=== PATIENT | male | born 1960 | race American Indian/Alaskan Native ===

== ENCOUNTER 2017-03-16 11:16 | Emergency (ER) | payer MEDICARE ==
[2017-03-16 11:16] VITALS: BMI 51.7
[2017-03-16 11:37] VITALS: BP 101/69; PULSE 95; RESP 18; TEMP 98.2; O2SAT 96
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
--- NOTE | 2017-03-16 13:56 | RAD ---
PROCEDURE: Radiographs of the Lumbar Spine. HISTORY: pain COMPARISON: No prior. FINDINGS: BONES: Normal alignment. No listhesis. No fracture. DISC SPACES: Disc degeneration at L5-S1 OTHER FINDINGS: None. IMPRESSION: Disc degeneration at L5-S1
== END 2017-03-16 13:57 | disposition home or self-care (01) ==
LOC: ED 11:16
DX: S39.012A Strain of muscle, fascia and tendon of lower back, initial encounter (principal); V89.2XXA Person injured in unspecified motor-vehicle accident, traffic, initial encounter; M54.5 Low back pain; G89.29 Other chronic pain
CPT/HCPCS: 72110; 96372; 99281; J1885

== ENCOUNTER 2017-10-08 19:04 | Inpatient (IN) | payer MEDICARE, OTHER ==
[2017-10-08 19:12] VITALS: BMI 40.7
[2017-10-08] MEDS ORDERED: Sodium Chloride 0.9% 1,000 ML IV STA (19:14)
--- NOTE | 2017-10-08 19:53 | ED PDOC ---
Arrival/HPI - General Chief Complaint: Syncope Time Seen by Provider: 10/08/17 19:13 Historian: Patient - History of Present Illness Narrative History of Present Illness (Text): 10/08/17 19:48 56 year old male, whose history includes TBI. presents to the Emergency department status post syncope just prior to arrival. Patient complains of mild trauma and pain to the back of the head. This is the second episode of syncope the patient has experienced this month; the first time, he did not seek medical evaluation. Patient denies any fever, chills, chest pain, palpitations, shortness of breath, nausea, vomiting, diarrhea, incontinence, back pain, neck pain, or any other complaints. Patient was scheduled to see his cost coordinator, Dr. Manrique, today but did not go. As per partner, patient has been more forgetful recently and occasionally dizzy. He is following with a neurologist for these issues. Patient is also reportedly eating less but drinking more water. Time/Duration: Prior to Arrival Symptom Onset: Sudden Symptom Course: Improving Context: Home Past Medical History - Provider Review Nursing Documentation Reviewed: Yes - Infectious Disease Hx of Infectious Diseases: None - Cardiac Other/Comment: Cardiomyopathy - Pulmonary Hx Respiratory Disorders: No - Neurological Hx Neurological Disorder: No - HEENT Hx HEENT Disorder: No - Renal Hx Renal Disorder: No - Endocrine/Metabolic Hx Endocrine Disorders: No - Hematological/Oncological Hx Blood Disorders: No - Integumentary Hx Dermatological Disorder: No - Musculoskeletal/Rheumatological Hx Musculoskeletal Disorders: Yes - Gastrointestinal Hx Gastrointestinal Disorders: Yes Other/Comment: Gastric bypass - Genitourinary/Gynecological Hx Genitourinary Disorders: No - Psychiatric Hx Psychophysiologic Disorder: No Hx Substance Use: No - Surgical History Hx Gastric Bypass Surgery: Yes - Anesthesia Hx Anesthesia: Yes Hx Anesthesia Reactions: No Hx Malignant Hyperthermia: No - Suicidal Assessment Feels Threatened In Home Enviroment: No Family/Social History - Physician Review Nursing Documentation Reviewed: Yes Family/Social History: Unknown Family HX Smoking Status: Never Smoked Hx Alcohol Use: Yes (weekly) Hx Substance Use: No Allergies/Home Meds Allergies/Adverse Reactions: Allergies kiwi Allergy (Uncoded 03/16/17 11:48) VOMITING nuts Allergy (Uncoded 03/16/17 11:48) ANAPHYLAXIS tangerine Allergy (Uncoded 03/16/17 11:48) VOMITING Home Medications: Home Meds Medication Instructions Recorded Confirmed Unobtainable 10/09/17 10/09/17 Review of Systems - Physician Review All systems were reviewed & negative as marked: Yes - Review of Systems Constitutional: absent: Fevers, Night Sweats Respiratory: absent: SOB Cardiovascular: absent: Chest Pain, Palpitations Gastrointestinal: absent: Diarrhea, Nausea, Vomiting Genitourinary Male: absent: Dysuria Musculoskeletal: absent: Back Pain, Neck Pain Neurological: Headache, Dizziness Physical Exam Vital Signs Reviewed: Yes Vital Signs Temp Pulse Resp BP Pulse Ox 10/08/17 19:13 98.0 F 80 18 105/53 L 96 Temperature: Afebrile Blood Pressure: Hypotensive Pulse: Regular Respiratory Rate: Normal Appearance: Positive for: Well-Appearing, Non-Toxic, Comfortable, Other (obese) Pain Distress: None Mental Status: Positive for: Alert and Oriented X 3 - Systems Exam Head: Present: Atraumatic (no hematoma), Tenderness (mild tenderness to right occiput) Pupils: Present: PERRL Extroacular Muscles: Present: EOMI Conjunctiva: Present: Normal Mouth: Present: Moist Mucous Membranes Neck: Present: Normal Range of Motion Respiratory/Chest: Present: Clear to Auscultation, Good Air Exchange. No: Respiratory Distress, Accessory Muscle Use Cardiovascular: Present: Regular Rate and Rhythm, Normal S1, S2. No: Murmurs Abdomen: No: Tenderness, Distention, Peritoneal Signs Back: Present: Normal Inspection Upper Extremity: Present: Normal Inspection. No: Cyanosis, Edema Lower Extremity: Present: Normal Inspection. No: Edema Neurological: Present: GCS=15, CN II-XII Intact, Speech Normal Skin: Present: Warm, Dry, Normal Color. No: Rashes Psychiatric: Present: Other (Seems dazed and forgetful. Not losing consciousness.) Medical Decision Making ED Course and Treatment: 10/08/17 19:58 Impression: 56 year old male presents to the Emergency department status post syncope just prior to arrival. Differential Diagnosis included but are not limited to: neurocardiogenic syncope vs. absence seizures vs. polypharmacy vs. dehydration Plan: -- CT scan of the head, rule out traumatic subdural -- Chest xray -- EKG-wnl -- Urinalysis -- S-Pabni-vrst out PE -- Labs -- Sodium Chloride IV fluids check orthostatics -- Reassess and disposition Prior Visits: Notes and results from previous visits were reviewed. Patient was last seen in the emergency department on 62, Lumbar spine strain and Chronic low back pain, and was discharged. Progress Notes: 10/08/17 20:10 reviewed old recoreds, recent negative MRI. - Lab Interpretations Lab Results: 10/08/17 20:02 10/08/17 20:02 Lab Results 10/08/17 23:14: Urine Opiates Screen Positive H, Urine Methadone Screen Negative , Ur Barbiturates Screen Negative, Ur Phencyclidine Scrn Negative, Ur Amphetamines Screen Negative, U Benzodiazepines Scrn Negative, U Oth Cocaine Metabols Negative, U Cannabinoids Screen Negative 10/08/17 23:14: Urine Color Yellow, Urine Appearance Clear, Urine pH 6.0, Ur Specific [place] 1.010, Urine Protein Trace H, Urine Glucose (UA) Negative, Urine Ketones Negative, Urine Blood Negative, Urine Nitrate Negative, Urine Bilirubin Negative, Urine Urobilinogen 0.2, Ur Leukocyte Esterase Negative, Urine RBC 0 - 2, Urine WBC 0 - 2, Ur Epithelial Cells 0 - 2, Hyaline Casts 0 - 2 10/08/17 20:02: Alcohol, Quantitative 259 H 10/08/17 20:02: Digoxin 0.9 10/08/17 20:02: PT 11.3, INR 0.99, APTT 31.2, D-Dimer, Quantitative < 200 10/08/17 20:02: WBC 7.4, RBC 3.87, Hgb 12.7 L, Hct 37.2 L, MCV 96.1, MCH 32.8, MCHC 34.1, RDW 14.7 H, Plt Count 218, MPV 9.3, Gran % 57.3, Lymph % (Auto) 34.2 , [place] % (Auto) 8.1 H, Eos % (Auto) 0.1 L, Baso % (Auto) 0.3, Gran # 4.24, Lymph # (Auto) 2.5, [place] # (Auto) 0.6, Eos # (Auto) 0.0, Baso # (Auto) 0.02 10/08/17 20:02: Sodium 143, Potassium 3.8, Chloride 101, Carbon Dioxide 24, Anion Gap 22 H, BUN 17, Creatinine 1.7 H, Est GFR ( Amer) 51, Est GFR ( Non-Af Amer) 42, Random Glucose 94, Calcium 8.2 L, Total Bilirubin 0.4, AST 134 H D, ALT 81 H, Alkaline Phosphatase 86, Troponin I < 0.01, Total Protein 6.5, Albumin 3.7, Globulin 2.8, Albumin/Globulin Ratio 1.3 - RAD Interpretation Narrative RAD Interpretations (Text): CT Head FINDINGS: Brain: Mild atrophy. No intracranial hemorrhage. No mass. No edema. Ventricles: No hydrocephalus. Bones/joints: No acute fracture. Sinuses: Postsurgical changes. Scattered minimal mucosal thickening of ethmoid sinuses. Mastoid air cells: No mastoid effusion. Orbits: Unremarkable as visualized. Soft tissues: Unremarkable. Vasculature: Minimal atherosclerotic disease of intracranial arteries. IMPRESSION: No intracranial hemorrhage. Radiology Orders: 10/08/17 19:14 CHEST TWO VIEWS (PA/LAT) [RAD] Stat 10/08/17 19:37 HEAD W/O CONTRAST [CT] Stat - EKG Interpretation EKG Interpretation (Text): 10/08/17 19:40 EKG: Ordered, reviewed, and independently interpreted the EKG. Rate : 83 BPM Rhythm : NSR Interpretation : No signs of Digoxin toxicity. Interpreted by ED Physician: Yes Type: 12 lead EKG - Medication Orders Current Medication Orders: Acetaminophen (Tylenol 325mg Tab) 650 mg PO Q4H PRN PRN Reason: Pain, Mild (1-3) Ondansetron HCl (Zofran Inj) 4 mg IVP Q4H PRN PRN Reason: Nausea/Vomiting Discontinued Medications Sodium Chloride (Sodium Chloride 0.9%) 1,000 mls @ 999 mls/hr IV .Q1H1M STA Stop: 10/08/17 20:14 Last Admin: 10/08/17 20:00 Dose: 999 mls/hr eMAR Start Stop Document 10/08/17 20:00 MS (Rec: 10/08/17 20:00 MS [id number]) Intravenous Solution Start Date 10/08/17 Start Time 20:00 End Date 10/08/17 End time 21:00 Total Infusion Time 60 - Scribe Statement The provider has reviewed the documentation as recorded by the Scribe Mukund Lowry All medical record entries made by the Scribe were at my direction and personally dictated by me. I have reviewed the chart and agree that the record accurately reflects my personal performance of the history, physical exam, medical decision making, and the department course for this patient. I have also personally directed, reviewed, and agree with the discharge instructions and disposition. Disposition/Present on Arrival - Present on Arrival Any Indicators Present on Arrival: No History of DVT/PE: No History of Uncontrolled Diabetes: No Urinary Catheter: No History of Decub. Ulcer: No History Surgical Site Infection Following: None - Disposition Have Diagnosis and Disposition been Completed?: Yes Diagnosis: Syncope and collapse Disposition: HOSPITALIZED Disposition Time: 21:00 Patient Plan: Observation Condition: IMPROVED
[2017-10-08 20:10] LABS: BASO # 0.02 K/mm3 (0.0-2.0); BASO % 0.3 % (0.0-3.0); EOS % 0.1 % (1.5-5.0); GRAN # 4.24 (1.4-6.5); GRAN % 57.3 % (50.0-68.0); HEMOGLOBIN 12.7 g/dL (14.0-18.0); LYMPH # 2.5 (1.2-3.4); LYMPH % 34.2 % (22.0-35.0); MEAN CELL VOLUME 96.1 fl (80.0-105.0); MEAN CORPUSCULAR HEMOGLOBIN 32.8 pg (25.0-35.0); MEAN CORPUSCULAR HGB CONC 34.1 g/dl (31.0-37.0); MEAN PLATELET VOLUME 9.3 fl (7.0-11.0); MONO # 0.6 (0.1-0.6); MONO % 8.1 % (1.0-6.0); RBC 3.87 10^6/uL (3.5-6.1); RED CELL DISTRIBUTION WIDTH 14.7 % (11.5-14.5); WHITE BLOOD COUNT 7.4 10^3/ul (4.5-11.0)
[2017-10-08 20:23] LABS: D DIMER < 200 ng/mL (0-243); INR 0.99 (0.93-1.08); PARTIAL THROMBOPLASTIN TIME 31.2 Seconds (25.1-36.5); PROTHROMBIN TIME 11.3 SECONDS (9.4-12.5)
[2017-10-08 20:29] LABS: ALB/GLOB RATIO 1.3 (1.1-1.8); ALBUMIN 3.7 g/dL (3.0-4.8); ALT/SGPT 81 U/L (7-56); AST/SGOT 134 U/L (17-59); BLOOD UREA NITROGEN 17 mg/dL (7-21); CALCIUM 8.2 mg/dL (8.4-10.5); GFR AFRICAN-AMERICAN 51; GFR NON-AFRICAN AMERICAN 42
[2017-10-08 20:31] LABS: TROPONIN I < 0.01 ng/mL
[2017-10-08 23:35] LABS: URINE BILIRUBIN NEGATIVE (NEGATIVE); URINE BLOOD NEGATIVE (NEGATIVE); URINE GLUCOSE (UA) NEGATIVE (NEGATIVE); URINE LEUKOCYTE ESTERASE NEGATIVE Leu/uL (NEGATIVE); URINE PROTEIN TRACE mg/dL (<30 mg/dL); URINE UROBILINOGEN 0.2 E.U./dL (<1 E.U./dL)
[2017-10-08 23:44] LABS: BARBITURATES, UR NEGATIVE (NEGATIVE); BENZODIAZEPINES, UR NEGATIVE (NEGATIVE); OPIATES, UR POSITIVE (NEGATIVE); PHENCYCLIDINE, UR NEGATIVE (NEGATIVE)
[2017-10-08 23:47] LABS: URINE APPEARANCE CLEAR (CLEAR); URINE COLOR YELLOW (YELLOW)
[2017-10-08 23:50] LABS: URINE EPITHELIAL CELLS 0 - 2 /hpf (0-5); URINE HYALINE CAST 0 - 2 /hpf; URINE RBC 0 - 2 /hpf (0-2); URINE WBC 0 - 2 /hpf (0-6)
[2017-10-09] MEDS ORDERED: Multivitamin (MVI) 10 ML in Dextrose 5% In Water 1,000 ML IV ONE (03:11)
[2017-10-09] MEDS ORDERED: Sodium Chloride 0.9% 1,000 ML IV STA (03:12)
--- NOTE | 2017-10-09 08:25 | RAD ---
HISTORY: syncope COMPARISON: No prior. TECHNIQUE: Chest PA and lateral FINDINGS: LUNGS: No active pulmonary disease. PLEURA: No significant pleural effusion identified. No pneumothorax apparent. CARDIOVASCULAR: Normal. OSSEOUS STRUCTURES: No significant abnormalities. VISUALIZED UPPER ABDOMEN: Normal. OTHER FINDINGS: None. IMPRESSION: No active disease.
[2017-10-09 09:09] LABS: ALB/GLOB RATIO 1.2 (1.1-1.8); ALBUMIN 3.5 g/dL (3.0-4.8); ALT/SGPT 75 U/L (7-56); AST/SGOT 92 U/L (17-59); BLOOD UREA NITROGEN 18 mg/dL (7-21); CALCIUM 8.3 mg/dL (8.4-10.5); GFR AFRICAN-AMERICAN > 60; GFR NON-AFRICAN AMERICAN > 60
--- NOTE | 2017-10-09 09:09 | CT ---
PROCEDURE: CT HEAD WITHOUT CONTRAST. HISTORY: fall COMPARISON: None available. TECHNIQUE: Axial computed tomography images were obtained through the head/brain without intravenous contrast. Radiation dose: Total exam DLP = 852 mGy-cm. This CT exam was performed using one or more of the following dose reduction techniques: Automated exposure control, adjustment of the mA and/or kV according to patient size, and/or use of iterative reconstruction technique. FINDINGS: HEMORRHAGE: No intracranial hemorrhage. BRAIN: No mass effect or edema. No atrophy or chronic microvascular ischemic changes. VENTRICLES: Unremarkable. No hydrocephalus. CALVARIUM: Unremarkable. PARANASAL SINUSES: Unremarkable as visualized. No significant inflammatory changes. MASTOID AIR CELLS: Unremarkable as visualized. No inflammatory changes. OTHER FINDINGS: The report concurs with the preliminary [facility] report IMPRESSION: Normal CT of the Head.
--- NOTE | 2017-10-09 09:21 | CARD ---
APPROVED REPORT EKG Measurement Heart [id number] IL [id number] <Conclusion> Normal sinus rhythm Normal ECG
--- NOTE | 2017-10-09 09:25 | HP ---
HISTORY OF PRESENT ILLNESS: I was called to see Elkin who came in with a syncopal episode, the second episode of the month. I saw him in the office for this, he has had a bunch of tests. He has a alcohol level very high. He always kind of denied his drinking and that was not a problem. Even today when I asked if that was the cause of the syncope, he denied it. He is on a banana bag right now. I have tried to get him to the rebar fabricator, he did not go; also to the neurologist that he went. Also, more forgetful and more dizzy. PAST MEDICAL HISTORY: Traumatic brain injury, syncope, apparent alcohol abuse for very long time, chronic pain, cardiomyopathy, back pain, a gastric bypass surgery in the past. There is hypertension in the family, never smoked. He drinks daily. ALLERGIES: HE IS ALLERGIC TO KIWI, NUTS AND TANGERINE. MEDICATIONS: He does remember his medications, but he tells me he is in a lot of pain medications by Pain Management doctor, but he does not know what they are at this time. REVIEW OF SYSTEMS: No fever or night sweats. No shortness of breath or cough. No chest pain or palpitations. No diarrhea, nausea, vomiting or constipation. No problems urinating. No back pain and neck pain. Does have a headache, we gave him Tylenol. He is a little bit dizzy and he did pass out, he tells us. PHYSICAL EXAMINATION: VITAL SIGNS: He has a 98 temperature, 80 pulse, 18 respiratory rate, 105/53 blood pressure, 96% O2 sat on room air. GENERAL: He is well appearing right now, nontoxic, comfortable and is morbidly obese, alert and oriented x3. HEENT: His head is traumatic with no hematoma, mild tenderness to the occiput when he fell and normocephalic. Extraocular muscles are intact. Pupils equal and reactive to light. Throat is moist. NECK: Supple. HEART: Regular rate. Normal S1, S2. LUNGS: Decreased breath sounds, but clear to auscultation. ABDOMEN: Morbidly obese, nontender. Positive bowel sounds. No guarding, no rebound, no CVA tenderness. EXTREMITIES: Have no edema. NEUROLOGIC: GCS is 15. Cranial nerves II-XII grossly intact at this time. Speech is normal. Looking for his pain medications, denying that alcohol has anything to do with the syncopal episode. He is alert, he is comfortable and forceful with this discussion a little bit, denying his alcohol. SKIN: Warm and dry that I could tell. No apparent rashes or ulcers at this time. DATA: He had multiple tests. He has a 7.4 white count, 12.7 hemoglobin, 37.2 hematocrit with 218 platelets. The D-dimer is less than 200. INR is 0.99. Sodium 143, potassium 3.8, BUN 17, creatinine 1.7, GFR is 42, sugar is 94, calcium is 8.2, total bili is 0.4, AST is 134, ALT is 81, alkaline phosphatase 86. Troponin I is less than 0.01, total protein 6.5. Urine is clear. Toxicology showed 259 alcohol level and positive opiates which he is asking for. Waiting for Neurology to come in to get their opinion. He came in last night. Waiting for labs to come in from this morning. Waiting for Neurology to come in give his opinion of the syncope. Discussed no more alcohol and be very careful with these pain medicines with Pain Management doctor. I am hoping if everything is okay, to discharge him this afternoon after Neurology sees him. This patient comes in syncope and elevated alcohol level. Zhen Mendoza DO [facility]
[2017-10-09] MEDS: Magnesium Oxide 400 mg Tab UD PO SCH ×2 (09:42→17:25)
--- NOTE | 2017-10-09 16:18 | CP.PCM.PCO ---
Physician Communication Note - Physician Communication Note Physician Communication Note: eeg is normal. Likely syncoep to etoh intoxication and vasvovagl component.
[2017-10-09] MEDS: oxyCODONE 10 mg Immediate Release Tab PO PRN (22:25)
--- NOTE | 2017-10-09 23:18 | CON ---
DATE: 10/09/2017 HISTORY OF PRESENT ILLNESS: This is a 56-year-old male with a past medical history of alcohol abuse, cardiomyopathy, chronic pain, status post gastric bypass surgery, hypertension in the family came to the hospital with a high level of alcohol and the patient has been getting oxycodone from pain management and alcohol level was high and called to evaluate the patient for a syncopal episode and the patient fell and CAT scan of the head was done which was reported negative. PAST MEDICAL HISTORY: Syncope, traumatic brain injury, alcohol abuse, cardiomyopathy, gastric bypass surgery. ALLERGIES: KIWI, NUTS AND TANGERINE. MEDICATIONS: The patient is on a lot of pain medications like oxycodone. REVIEW OF SYSTEMS: A 10-point review of systems was negative except intermittent confusion. PHYSICAL EXAMINATION HEENT: Normocephalic and atraumatic. NECK: Supple. NEUROLOGIC: Awake and oriented to self. Cranial nerves II through XII were tested. Pupils are reactive. EOM intact. Visual field full. No facial asymmetry. Tongue midline. Motor examination, moves all the extremities equally. Tone normal. Deep tendon reflexes 1+. Both plantars are downgoing. Sensory appears intact. Cerebellar, gait deferred. IMPRESSION AND PLAN: Intermittent confusional state, high alcohol intoxication and the level of alcohol was 259 and the patient is on banana bag and CAT scan of the head was done which was reported negative. Continue present management. We will follow up. Jovan Craig MD
--- NOTE | 2017-10-10 06:40 | CP.PCM.PN ---
Subjective - Date & Time of Evaluation Date of Evaluation: 10/10/17 Time of Evaluation: :18 - Subjective Subjective: S:Nurse calls with BP 170/89. States that he takes medication for blood pressure. 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 Burton Gerard? at [facility]. Denies headache , heaviness in head, chest pain, sob, nausea. Medical record was reviewed. There is a family history of HTN. O: Last Vital Signs 3 Temp 98.7 F 10/09/17 18:00 Pulse 75 10/10/17 03:06 Resp 20 10/09/17 18:00 BP 140/75 10/09/17 18:00 Pulse Ox 99 10/09/17 18:00 Awake, alert, not in distress. Obese person. LUNGS:Normal breathing pattern. A:Elevated blood pressure reading. Pulmonary HTN. P:Clonidine 0.2 mg PO x1, recheck BP in one hour. Objective - Vital Signs/Intake and Output Vital Signs (last 24 hours): Temp Pulse Resp BP Pulse Ox 98.7 F 75 20 140/75 99 10/09/17 18:00 10/10/17 03:06 10/09/17 18:00 10/09/17 18:00 10/09/17 18:00 Intake and Output: 10/09/17 10/10/17 18:59 06:59 Intake Total 660 Balance 660 - Medications Medications: Current Medications Acetaminophen (Tylenol 325mg Tab) 650 mg PO Q4H PRN PRN Reason: Pain, Mild (1-3) Last Admin: 10/10/17 05:09 Dose: 650 mg Lorazepam (Ativan) 0.5 mg PO Q6H PRN; Protocol PRN Reason: Symptoms of alcohol withdrawl Last Admin: 10/09/17 16:40 Dose: 0.5 mg Magnesium Oxide (Mag-Ox) 400 mg PO BID BENNETT Last Admin: 10/09/17 17:25 Dose: 400 mg Ondansetron HCl (Zofran Inj) 4 mg IVP Q4H PRN PRN Reason: Nausea/Vomiting Oxycodone HCl (Oxycodone Immediate Release Tab) 10 mg PO BID PRN PRN Reason: Pain, moderate (4-7) Last Admin: 10/09/17 22:25 Dose: 10 mg - Labs Labs: PT 11.3 SECONDS (9.4-12.5) 10/08/17 20:02 INR 0.99 (0.93-1.08) 10/08/17 20:02 APTT 31.2 Seconds (25.1-36.5) 10/08/17 20:02
[2017-10-10 08:22] LABS: HEMOGLOBIN 12.3 g/dL (14.0-18.0); MEAN CELL VOLUME 97.4 fl (80.0-105.0); MEAN CORPUSCULAR HGB CONC 32.9 g/dl (31.0-37.0); MEAN PLATELET VOLUME 9.8 fl (7.0-11.0); RBC 3.84 10^6/uL (3.5-6.1); RED CELL DISTRIBUTION WIDTH 14.8 % (11.5-14.5); WHITE BLOOD COUNT 5.2 10^3/ul (4.5-11.0)
[2017-10-10] MEDS: Magnesium Oxide 400 mg Tab UD PO SCH ×2 (09:28→17:52)
[2017-10-10] MEDS: oxyCODONE 10 mg Immediate Release Tab PO PRN ×3 (09:28→22:21)
[2017-10-10] MEDS ORDERED: Sodium Chloride 0.45% 1,000 ML IV SCH (10:45)
[2017-10-11 07:51] LABS: HEMOGLOBIN 11.2 g/dL (14.0-18.0); MEAN CELL VOLUME 97.4 fl (80.0-105.0); MEAN CORPUSCULAR HEMOGLOBIN 32.7 pg (25.0-35.0); MEAN CORPUSCULAR HGB CONC 33.5 g/dl (31.0-37.0); MEAN PLATELET VOLUME 9.7 fl (7.0-11.0); RBC 3.43 10^6/uL (3.5-6.1); RED CELL DISTRIBUTION WIDTH 14.8 % (11.5-14.5); WHITE BLOOD COUNT 7.7 10^3/ul (4.5-11.0)
[2017-10-11 08:17] LABS: ALB/GLOB RATIO 1.1 (1.1-1.8); ALBUMIN 2.9 g/dL (3.0-4.8); ALT/SGPT 43 U/L (7-56); AST/SGOT 33 U/L (17-59); BLOOD UREA NITROGEN 11 mg/dL (7-21); CALCIUM 8.5 mg/dL (8.4-10.5); GFR AFRICAN-AMERICAN > 60; GFR NON-AFRICAN AMERICAN > 60
[2017-10-11] MEDS ORDERED: Digoxin 250 mcg (0.25 mg) Tab PO SCH (10:00)
[2017-10-11] MEDS ORDERED: Non Formulary Medication (Celecoxib [Celebrex] 200 MG) PO SCH (10:00)
[2017-10-11] MEDS: Non Formulary Medication (Celecoxib [Celebrex] 200 MG) PO SCH (10:02)
[2017-10-11] MEDS: EDARBI 80 MG PO SCH (10:03)
[2017-10-11] MEDS: Magnesium Oxide 400 mg Tab UD PO SCH ×2 (10:03→18:03)
[2017-10-11] MEDS: oxyCODONE 10 mg Immediate Release Tab PO PRN ×2 (10:03→18:07)
[2017-10-11] MEDS: Levothyroxine 100 MCG TAB PO SCH (10:04)
[2017-10-11] MEDS: Digoxin 250 mcg (0.25 mg) Tab PO SCH (14:24)
[2017-10-11 16:24] VITALS: O2SAT 98
--- NOTE | 2017-10-12 05:55 | CP.PCM.PN ---
Subjective - Date & Time of Evaluation Date of Evaluation: 10/12/17 Time of Evaluation: 05:54 - Subjective Subjective: S:Seen at bedside for BP 202/115 (left), 210/118 (right). Complains of back pain. Has no other complaints. Denies headache, dizziness, heaviness in head, chest pain, sob. Medical record was reviewed. Received Oxycodone 20 mg PO at 10 PM. Next dose is not due until 10 AM. O: Last Vital Signs 3 Temp 98 F 10/11/17 16:23 Pulse 75 10/11/17 22:00 Resp 18 10/11/17 16:23 BP 181/95 H 10/11/17 18:03 Pulse Ox 98 10/11/17 16:23 Alert, awake, not in distress. LUNGS: Normal breathing pattern. A:Elevated blood pressure reading. Back pain. P:Clonidine 0.2 mg PO x 1. Oxycodone 20 mg PO x 1. Objective - Vital Signs/Intake and Output Vital Signs (last 24 hours): Temp Pulse Resp BP Pulse Ox 98 F 75 18 181/95 H 98 10/11/17 16:23 10/11/17 22:00 10/11/17 16:23 10/11/17 18:03 10/11/17 16:23 Intake and Output: 10/11/17 10/12/17 18:59 06:59 Intake Total 660 1080 Balance 660 1080 - Medications Medications: Current Medications Acetaminophen (Tylenol 325mg Tab) 650 mg PO Q4H PRN PRN Reason: Pain, Mild (1-3) Last Admin: 10/12/17 05:13 Dose: 650 mg Aspirin (Ecotrin) 81 mg PO DAILY [facility] Last Admin: 10/11/17 10:02 Dose: 81 mg Carvedilol (Coreg) 25 mg PO BID [facility] Last Admin: 10/11/17 18:03 Dose: 25 mg Digoxin (Lanoxin) 0.25 mg PO 1400 [facility] Last Admin: 10/11/17 14:24 Dose: 0.25 mg Home Med (Home Med) 1 unit PO DAILY [facility] Last Admin: 10/11/17 10:03 Dose: 1 unit Sodium Chloride (Sodium Chloride 0.45%) 1,000 mls @ 40 mls/hr IV .Q24H [facility] Levothyroxine Sodium (Synthroid) 100 mcg PO DAILY [facility] Last Admin: 10/11/17 10:04 Dose: 100 mcg Lorazepam (Ativan) 0.5 mg PO Q6H PRN; Protocol PRN Reason: Symptoms of alcohol withdrawl Last Admin: 10/09/17 16:40 Dose: 0.5 mg Magnesium Oxide (Mag-Ox) 400 mg PO BID [facility] Last Admin: 10/11/17 18:03 Dose: 400 mg Non-Formulary Medication (Celecoxib [Celebrex]) 200 mg PO DAILY [facility] Last Admin: 10/11/17 10:02 Dose: Not Given Ondansetron HCl (Zofran Inj) 4 mg IVP Q4H PRN PRN Reason: Nausea/Vomiting Oxycodone HCl (Oxycodone Immediate Release Tab) 20 mg PO BID PRN PRN Reason: Pain, severe (8-10) Last Admin: 10/11/17 18:07 Dose: 20 mg Tamsulosin HCl (Flomax) 0.4 mg PO BID [facility] Last Admin: 10/11/17 18:03 Dose: 0.4 mg Zolpidem Tartrate (Ambien) 10 mg PO HS PRN; Protocol PRN Reason: Insomnia Last Admin: 10/11/17 22:49 Dose: 10 mg - Labs Labs: 10/11/17 07:35 10/11/17 07:35 PT 11.3 SECONDS (9.4-12.5) 10/08/17 20:02 INR 0.99 (0.93-1.08) 10/08/17 20:02 APTT 31.2 Seconds (25.1-36.5) 10/08/17 20:02
[2017-10-12] MEDS: oxyCODONE 10 mg Immediate Release Tab PO PRN ×2 (06:00→13:23)
[2017-10-12 07:18] LABS: HEMOGLOBIN 11.5 g/dL (14.0-18.0); MEAN CELL VOLUME 98.3 fl (80.0-105.0); MEAN CORPUSCULAR HEMOGLOBIN 32.6 pg (25.0-35.0); MEAN CORPUSCULAR HGB CONC 33.1 g/dl (31.0-37.0); MEAN PLATELET VOLUME 9.6 fl (7.0-11.0); RBC 3.53 10^6/uL (3.5-6.1); RED CELL DISTRIBUTION WIDTH 14.7 % (11.5-14.5); WHITE BLOOD COUNT 7.3 10^3/ul (4.5-11.0)
[2017-10-12 07:54] LABS: ALB/GLOB RATIO 1.2 (1.1-1.8); ALBUMIN 3.1 g/dL (3.0-4.8); ALT/SGPT 36 U/L (7-56); AST/SGOT 24 U/L (17-59); BLOOD UREA NITROGEN 14 mg/dL (7-21); CALCIUM 8.6 mg/dL (8.4-10.5); GFR AFRICAN-AMERICAN > 60; GFR NON-AFRICAN AMERICAN > 60
[2017-10-12 08:07] VITALS: BP 160/70; PULSE 79; RESP 19; TEMP 97.7
--- NOTE | 2017-10-12 08:59 | PN ---
DATE: 10/10/2017 SUBJECTIVE: I saw him in bed this morning. He is not feeling that well. He is not walking that well. He feels weak. He has some IV fluids. He is on Ativan, Catapres, magnesium oxide. He is off the banana bag. I put him on regular fluids. He has got his pain medications and Zofran for nausea, but he still feels little bit off. PHYSICAL EXAMINATION VITAL SIGNS: He has 98 temperature, 85 pulse, 170/89 blood pressure, 20 respiratory rate, 98% O2 sat on room air. HEENT: Head: Atraumatic, normocephalic. HEART: Regular rate. LUNGS: Decreased breath sounds bilaterally, but clear. ABDOMEN: Soft, morbidly obese, nontender. EXTREMITIES: No edema. He had 2 syncopal episodes in about 2 or 3 weeks. He denies drinking alcohol, although he has a 257 alcohol level and he is in denial, but he has not closed the idea of going to rehab. LABORATORY DATA: He has 5.2 white count, 12.3 hemoglobin, hematocrit 37.4, with 198 platelets. He has sodium 139, potassium 4.2, BUN 80, creatinine 1.2, GFR is greater than 60, sugar is 180, calcium is 8.3, total bili is 1.3. AST is 92, ALT is 75, alkaline phosphatase 83, total protein is 6.4. Urine is clean. Toxicology is 259 alcohol level, positive for opiates. He is being seen by Neurology. There are orders for Neurology and pain management. need him physical therapy to see what they recommend and that was done yesterday afternoon. They recommend TCU. So, I am hoping for TCU for him probably on Thursday. We will check his labs tomorrow. Get him out of bed to chair, physical therapy, IV fluids as he gets detox from the alcohol. The plan is going to be for TCU on Thursday. He is here for alcohol withdrawal and syncopal episode. Zhen Mendoza DO MTDArie
--- NOTE | 2017-10-12 09:20 | PN ---
DATE: 10/11/2017 SUBJECTIVE: He is trying to feel little bit better. He does not have a syncopal feeling. He wants go back to his medications. He is being on Ambien at night, Ativan, Celebrex, Coreg, Ecotrin, Flomax, Lanoxin, magnesium oxide, oxycodone, IV fluids, Synthroid, Tylenol and Zofran. I need to get him to walk little bit more, he needs TCU, his recommendations from Physical Therapy, so tomorrow he will be go to TCU tomorrow. PHYSICAL EXAMINATION: VITAL SIGNS: Temp 98, 78 pulse, 171/84 blood pressure, 20 respiratory rate, 100% O2 sat on room air. GENERAL: He is more alert and calmer, still little jittery, but no so terrible.. HEENT: Head is atraumatic and normocephalic. HEART: Regular rate. LUNGS: Decreased breath sounds, but clear. ABDOMEN: Soft, obese, nontender. EXTREMITIES: No edema. LABORATORY DATA: White count 7.7, 11.2 hemoglobin, 33.4 hematocrit with 177 platelets. Sodium 139, potassium 4.2, BUN 18, creatinine 1.2, GFR is greater than 60, sugar is 118, calcium is 8.3, total bili is 1.3, AST is 92, ALT is 75, alk phos 83, total protein 6.4. ASSESSMENT AND PLAN: He did have a very elevated alcohol level of 259 and positive for opiates when he came in. I believe that is the reason why he had a syncopal episode. He is little bit in denial. We did discuss going to rehab for alcohol. He is up for it, but trying him to TCU tomorrow to get physical therapy before he goes home. He had syncopal episode and elevated alcohol. Zhen Mendoza DO MTDD
[2017-10-12] MEDS: EDARBI 80 MG PO SCH (09:34)
[2017-10-12] MEDS: Magnesium Oxide 400 mg Tab UD PO SCH (09:36)
[2017-10-12] MEDS: Levothyroxine 100 MCG TAB PO SCH (09:38)
--- NOTE | 2017-10-12 10:52 | EEG ---
DATE: 10/09/2017 ELECTROENCEPHALOGRAM CONDITION OF THE RECORDING: Drowsy. DIAGNOSIS: Syncope. MEDICATIONS: Reviewed by nurse per reconciliation sheet. INTERPRETATION: This is a 16-channel international recording. The background activity of this tracing was composed of 8 cycles per second. There was small amount of beta activity of 16 to 20 cycles per second seen in this recording. There was small amount of theta activity of 5 to 7 cycles per second seen in this tracing. Drowsiness was characterized by the mixed beta and theta activities. The sleep was characterized by vertex transient waves, sleep spindles and bilateral slowing. Photic stimulation showed no changes in the tracing. No paroxysmal activities noted in the recording. CONCLUSION: This is a normal drowsy EEG. No evidence of any epileptiform activity. Please clinically correlate. Jimy Craig MD
[2017-10-12] MEDS: Non Formulary Medication (Celecoxib [Celebrex] 200 MG) PO SCH (13:16)
[2017-10-12] MEDS: Digoxin 250 mcg (0.25 mg) Tab PO SCH (13:22)
[2017-10-12 13:24] VITALS: PULSE 80
--- NOTE | 2017-10-13 07:45 | DS ---
HISTORY OF PRESENT ILLNESS: He was in the hospital for being syncopal, unresponsive for a moment, alcohol level very high greater than 250, and some alcohol withdrawal. Physical therapy recommended TCU for patient safety. He is on IV fluids, Ambien, Ativan, Catapres, Celebrex, Coreg, Ecotrin, Flomax, Lanoxin, magnesium, pain meds, Synthroid, Tylenol, and Zofran. PHYSICAL EXAMINATION: VITAL SIGNS: Temperature 97.7; pulse 79; 160/70 blood pressure - better; 19 respiratory rate, 98% O2 sat on room air. HEENT: Head is atraumatic, normocephalic. HEART: Regular rate. LUNGS: Decreased breath sounds, but clear. ABDOMEN: Soft, morbidly obese, nontender. EXTREMITIES: No edema. NEUROLOGIC: He is weak. He needs help to walk. He needs some physical therapy. LABORATORY DATA: He has 7.3 white count, 11.5 hemoglobin, 34.7 hematocrit, 180 platelets. He has 140 sodium, potassium 4.6, BUN 14, creatinine 0.9, GFR is greater than 60, sugar is 106. Total bilirubin is 0.5, AST is 24, ALT is 36, alkaline phosphatase , total protein is 5.7. The plan is for him to go to physical therapy before he goes home. His alcohol level when he came in was 259. He is being seen by Neurology. He is asking for pain medications and pain treatment. I will consult Dr. Giron, his pain management doctor. He is going to be moved over to TCU later today. We will continue with aggressive treatment and care, watching his blood pressures, which are good this morning and encourage him to participate in therapy and no more alcohol. Zhen Mendoza DO MTDD
== END 2017-10-12 14:16 | DRG 897 ==
LOC: ED 19:04 → ERH 23:17 → 3RNO 10-09 00:59 → OBSVTOIN 10-09 15:45
PROVIDERS: ADMIT Family Medicine; ATTEND Family Medicine
DX: F10.239 Alcohol dependence with withdrawal, unspecified (principal); I42.9 Cardiomyopathy, unspecified; Y90.8 Blood alcohol level of 240 mg/100 ml or more; I27.20 Pulmonary hypertension, unspecified; R55 Syncope and collapse; M54.9 Dorsalgia, unspecified; G89.29 Other chronic pain; Z98.84 Bariatric surgery status; Z87.820 Personal history of traumatic brain injury; Z82.49 Family history of ischemic heart disease and other diseases of the circulatory system

== ENCOUNTER 2017-10-12 14:19 | Inpatient (IN) | payer OTHER ==
[2017-10-12 14:59] VITALS: BMI 44.6
[2017-10-12] MEDS: Magnesium Oxide 400 mg Tab UD PO SCH (17:17)
[2017-10-12] MEDS ORDERED: Pneumococcal 23-Valent Vaccine IM ONE (17:36)
[2017-10-12] MEDS: oxyCODONE 20 mg Immediate Release Tab PO PRN (22:36)
[2017-10-13] MEDS: Levothyroxine 100 MCG TAB PO SCH (06:27)
[2017-10-13] MEDS: EDARBI 80 MG PO SCH (09:36)
[2017-10-13] MEDS: Magnesium Oxide 400 mg Tab UD PO SCH ×2 (09:36→17:39)
--- NOTE | 2017-10-13 09:48 | HP ---
HISTORY OF PRESENT ILLNESS: I saw Elkin in the Transitional Care Unit. He was transferred over from the hospital side. He is a 56-year-old man, who came to the hospital site with a syncopal episode. Also, he is in chronic pain. He has a high alcohol level of 259 and he is on pain meds from pain management for chronic pain and he is in denial of that is the reason for syncopal episode. We are trying to also get him off the alcohol. His family is very adamant about him going to rehab. He does not want to do it at this time. PAST MEDICAL HISTORY: He has a past medical history of traumatic brain injury; syncope; apparent alcohol abuse for very long time; chronic pain, on pain meds with the pain management doctor; cardiomyopathy; back pain; gastric bypass surgery in the past. FAMILY HISTORY: There was hypertension in the family. SOCIAL HISTORY: Never smoked. Drinks daily. Lots of narcotics. ALLERGIES: HE IS ALLERGIC TO KIWI, NUTS AND TANGERINE. MEDICATIONS: He is currently on Ambien, Catapres, Coreg, Ecotrin, Flomax, Lanoxin, magnesium, oxycodone, Synthroid, Tylenol, Zofran. REVIEW OF SYSTEMS: No fever. No night sweats. No shortness of breath or cough. No chest pain or palpitations. No diarrhea, nausea, vomiting, constipation or problems urinating. No back pain or neck pain at this time. Does have a headache, but that went away. He did get dizzy that is better now. He did not pass out at this time. PHYSICAL EXAMINATION: VITAL SIGNS: He has vital signs as 97.9 temp, 79 pulse, 120/71 blood pressure, 16 respiratory rate, 99% O2 sat on room air. GENERAL: He is well appearing. Sitting up in bed, feeding himself breakfast. He is in good spirits. He is feeling better overall. No tremors. HEENT: His head is atraumatic, normocephalic. His extraocular muscles are intact. His pupils equal, reactive to light. Throat is moist. NECK: Supple. HEART: Regular rate. Normal S1 and S2. LUNGS: Decreased breath sounds, but clear to auscultation. ABDOMEN: Soft, morbidly obese, nontender. Positive bowel sounds. No guarding. No rebound. No CVA tenderness. EXTREMITIES: Have no edema. He can move all 4 extremities well. NEUROLOGIC: GCS is 15. Cranial nerves II through XII grossly intact. Speech is normal. IMPRESSION: All he wants to talk about is pain medications. He is denying alcohol has anything to do with the syncopal episode. He is here because Physical Therapy said he needed rehab in TCU before he went home for safety. We will check his labs tomorrow. We will get a consult with his pain management doctor, Dr. Giron if they want to make any changes in his medications. We will encourage him to eat well, take his medications, do the physical therapy. Zhen Mendoza DO
[2017-10-13] MEDS ORDERED: CELEBREX 200 MG PO SCH (10:00)
[2017-10-13] MEDS: oxyCODONE 20 mg Immediate Release Tab PO PRN (10:31)
[2017-10-13] MEDS: Digoxin 250 mcg (0.25 mg) Tab PO SCH (13:39)
[2017-10-13] MEDS: oxyCODONE 20 mg ER Tab (oxyCONTIN) PO SCH (21:08)
--- NOTE | 2017-10-14 05:51 | CON ---
DATE: 10/13/2017 CONSULTATION NOTE LOCATION: Room number 318, bed 1. REQUESTING PHYSICIAN: Zhen Mendoza D.O. CHIEF COMPLAINT: Chronic low back pain. HISTORY OF PRESENT ILLNESS: Mr. Pickett is a 56-year-old patient who is well known to me as he has been treated for chronic pain syndrome and chronic low back pain. Patient was admitted to the hospital with syncopal episode as he admitted that he has been falling. On admission, he had a high alcohol level of 259 and the patient admitted that he was taking alcohol as his pain medication. He ran out of his pain medication and he was using alcohol to get some relief. PAST MEDICAL HISTORY: Traumatic brain injury, syncope, alcohol abuse, chronic pain, cardiomyopathy, history of gastric bypass in the past. FAMILY HISTORY: Hypertension in the family. SOCIAL HISTORY: Patient denied any smoking. He drinks alcohol daily. Denied any IV drug abuse. ALLERGIES: HE IS ALLERGIC TO KIWI, NUTS AND TANGERINE. MEDICATIONS: Patient is currently on Ambien, Coreg, Ecotrin, Flomax, Lanoxin, magnesium, OxyContin, Synthroid, Zofran. REVIEW OF SYSTEMS: Patient denied any fever, any night sweats. He denied any cough, shortness of breath, sputum. He denied any chest pain, palpitation. He denied any nausea, vomiting, abdominal pain. He denied any bowel or bladder dysfunction. PHYSICAL EXAMINATION: GENERAL: He is well appearing, mildly obese. VITAL SIGNS: He is afebrile. Vitals signs stable. HEENT: His head is atraumatic, normocephalic. Extraocular muscles are intact. Pupils are equal, reactive. NECK: Supple. No jugular venous distention. HEART: Normal S1 and S2. LUNGS: Clear to auscultation. ABDOMEN: Soft, morbidly obese, nontender. NEUROMUSCULAR: He is alert, awake, and oriented x3. Concentrates very well. Cranial nerves II through XII grossly intact. Coordination is grossly intact. There is tenderness over spinous process of lower lumbar spine, bilateral lumbar paraspinal and lumbar facet joint line. Facet joint loading maneuver is positive. Straight leg raising test elicits lower back pain. There is intact sensation to bilateral lower extremity. IMPRESSION: Chronic low back pain secondary to degenerative disk disease and lumbar spondylosis without myelopathy. RECOMMENDATIONS: We will change his oxycodone 20 mg immediate release to OxyContin 20 mg extended release scheduled every 8 hours. Patient to follow up as an outpatient to better manage his medications and the issue of drinking alcohol. Use of this medication was discussed in detail with the patient, whose risks were explained to the patient and we will discuss further on his next visit. Patrick Giron MD
[2017-10-14] MEDS: oxyCODONE 20 mg ER Tab (oxyCONTIN) PO SCH ×3 (06:10→21:47)
[2017-10-14 07:02] LABS: HEMOGLOBIN 11.2 g/dL (14.0-18.0); MEAN CELL VOLUME 99.1 fl (80.0-105.0); MEAN CORPUSCULAR HEMOGLOBIN 32.4 pg (25.0-35.0); MEAN CORPUSCULAR HGB CONC 32.7 g/dl (31.0-37.0); RBC 3.46 10^6/uL (3.5-6.1); RED CELL DISTRIBUTION WIDTH 14.8 % (11.5-14.5); WHITE BLOOD COUNT 9.3 10^3/ul (4.5-11.0)
[2017-10-14 07:25] LABS: BLOOD UREA NITROGEN 20 mg/dL (7-21)
[2017-10-14 07:26] LABS: ALB/GLOB RATIO 1.2 (1.1-1.8); ALBUMIN 3.2 g/dL (3.0-4.8); ALT/SGPT 30 U/L (7-56); AST/SGOT 29 U/L (17-59); CALCIUM 8.8 mg/dL (8.4-10.5); GFR AFRICAN-AMERICAN > 60; GFR NON-AFRICAN AMERICAN > 60
--- NOTE | 2017-10-14 09:04 | PN ---
DATE: 10/14/2017 SUBJECTIVE: I saw Elkin in the TCU. He has slept well. He is comfortable. He is in better spirits. Dr. Giron came to see him and adjusted his pain management meds, which is very good. I have been asking him for 3-4 days since he has been in the hospital site. He is also asking for trazodone at nighttime to help him sleep. PHYSICAL EXAMINATION: VITAL SIGNS: He has a 98.6 temp, 79 pulse, 136/78 blood pressure, 18 respiratory rate, 97% O2 sat on room air. GENERAL: He is also trying on physical therapy. He is getting a little bit better. He has got ways to go. HEENT: His head is atraumatic, normocephalic. HEART: Regular rate. LUNGS: Decreased breath sounds, but clear. ABDOMEN: Soft, obese, nontender. EXTREMITIES: Trace edema. MEDICATIONS: He is on Ambien, Catapres, Coreg, Desyrel, Ecotrin, Flomax, Lanoxin, magnesium oxide, Norvasc. Now, he is on oxycodone extended release, Synthroid and Tylenol, Zofran and he got trazodone 100 mg at nighttime. LABORATORY DATA: He had a 142 sodium, potassium 4.4, BUN 20, creatinine 0.9, GFR is greater than 60, sugar is 108, calcium is 8.8, total bili is 0.5, AST is 29, ALT is 30, alk phos 61, total protein is 5.8. White count is 9.3, hemoglobin 11.2, hematocrit 34.3, platelets of 214. ASSESSMENT AND PLAN: I encouraged him to participate in physical therapy. Also, to take his medications. He is also not going to drink anymore. Discussed the alcohol issue once again. We will continue with physical therapy, his medications. He will eat. He will get out of bed everyday and hopefully improve. Elkin Pickett with syncopal episode, high alcohol level, alcoholic chronic pain, hypertension, anxiety. Zhen Mendoza DO
[2017-10-14] MEDS: CELEBREX 200 MG PO SCH (09:33)
[2017-10-14] MEDS: Magnesium Oxide 400 mg Tab UD PO SCH ×2 (09:33→17:32)
[2017-10-14] MEDS: EDARBI 80 MG PO SCH (09:35)
[2017-10-14] MEDS: Digoxin 250 mcg (0.25 mg) Tab PO SCH (13:16)
[2017-10-15] MEDS: oxyCODONE 20 mg ER Tab (oxyCONTIN) PO SCH ×4 (05:15→23:00)
[2017-10-15] MEDS: Levothyroxine 100 MCG TAB PO SCH (05:15)
[2017-10-15] MEDS: CELEBREX 200 MG PO SCH (09:42)
[2017-10-15] MEDS: Magnesium Oxide 400 mg Tab UD PO SCH ×2 (09:43→17:54)
[2017-10-15] MEDS: EDARBI 80 MG PO SCH (09:43)
--- NOTE | 2017-10-15 10:32 | PN ---
DATE: 10/15/2017 SUBJECTIVE: I saw him sitting up in bed, eating his breakfast. He is feeling well. He is walking with physical therapy. He is a little bit off, but better. He is improving. MEDICATIONS: He is on Ambien, Antivert, Catapres, Coreg, Desyrel, Ecotrin, Flomax, Lanoxin, magnesium, Norvasc, OxyContin, Synthroid, Tylenol and Zofran. PHYSICAL EXAMINATION: VITAL SIGNS: 97.8 temp, 79 pulse, 155/80 blood pressure, 18 respiratory rate, 100% O2 sat on room air. GENERAL: He is eating quite well. He is sitting up eating breakfast. HEENT: His head is atraumatic, normocephalic. HEART: Regular rate. LUNGS: Clear to auscultation. ABDOMEN: Soft, obese, nontender. EXTREMITIES: No edema. LABORATORY DATA: Last labs were on 10/14/2017 and he did well. ASSESSMENT AND PLAN: He is doing well on physical therapy. Pain Management came and adjusted his medications. I encouraged him to continue with physical therapy, exercise, eat well and we will continue with what we are doing, 5 more days in the Transitional Care Unit. Elkin Pickett who has got unstable balance. He had a syncopal episode. He had alcohol problems and I think he is slowly improving. Elikn Pickett also has chronic pain. Zhen Mendoza DO
[2017-10-15] MEDS: Digoxin 250 mcg (0.25 mg) Tab PO SCH (14:16)
--- NOTE | 2017-10-15 20:17 | CON ---
DATE: 10/15/2017 CARDIOLOGY CONSULTATION HISTORY OF PRESENT ILLNESS: The patient is a 56-year-old male who presented to the hospital with recurrent syncope. He was noted to have alcohol level above 300 with positive opiates in his urine. PAST MEDICAL HISTORY: The patient's past medical history includes a history of cardiomyopathy. According to the patient, he has been followed by a marketing mgr in [place]. He denies myocardial infarction. He was treated with digoxin and aspirin. He denies coronary artery disease. SOCIAL HISTORY: The patient denies smoking, but admits to multiple episodes of alcohol binging. REVIEW OF SYSTEMS: Reviewed in detail. No shortness of breath. No angina. Negative edema in the lower extremities. PHYSICAL EXAMINATION: VITAL SIGNS: Blood pressure in the TCU is 86/58 and there are orthostatic changes noted. NECK: Negative JVD. LUNGS: Without rales. HEART: Reveals S1, S2. EXTREMITIES: Without edema. DIAGNOSTIC DATA: EKG, no acute changes. LABORATORY DATA: BUN and creatinine are unremarkable. Troponins on admission were negative. Hemoglobin is 11.2. IMPRESSION: 1. Multiple syncopal episodes. 2. This admission, the patient had alcoholic toxicity. 3. Opiate use. 4. Questionable cardiomyopathy. 5. Anemia. 6. Obesity. PLAN: Given these findings, I have discussed with the patient about the alcohol-related syncope. The patient denies he drinks too much, but admits to a binge. We will obtain an echocardiogram to evaluate his LV function and his possible cardiomyopathy. We will discontinue his clonidine and may need to hold back on his Norvasc depending on his blood pressure response. Onel Garrett MD
--- NOTE | 2017-10-15 22:07 | CARD ---
APPROVED REPORT EKG Measurement Heart [id number] <Conclusion> Normal sinus rhythm Minimal voltage criteria for LVH, may be normal variant Cannot rule out Inferior infarct, age undetermined Abnormal ECG
[2017-10-16] MEDS: Levothyroxine 100 MCG TAB PO SCH (06:24)
[2017-10-16] MEDS: Magnesium Oxide 400 mg Tab UD PO SCH ×2 (09:28→17:44)
[2017-10-16] MEDS: EDARBI 80 MG PO SCH (09:28)
[2017-10-16] MEDS: CELEBREX 200 MG PO SCH (09:28)
[2017-10-16] MEDS: oxyCODONE 20 mg ER Tab (oxyCONTIN) PO SCH ×4 (09:29→23:00)
--- NOTE | 2017-10-16 10:28 | PN ---
DATE: 10/16/2017 CARDIOLOGY FOLLOWUP SUBJECTIVE: The patient is without complaints. PHYSICAL EXAMINATION: VITAL SIGNS: Blood pressure is 136/75, heart rates in the 90s. NECK: Negative JVD. LUNGS: Without rales. HEART: Reveals S1, S2. EXTREMITIES: Without edema. LABORATORY DATA: Includes an echocardiogram, which was performed which revealed normal LV function, no LV outflow obstruction. No aortic stenosis. IMPRESSION: 1. History of recurrent syncope. 2. No evidence for cardiomyopathy in which the patient states he had. 3. Recurrent alcohol binges. 4. Obesity. 5. Hypertension. Given these findings, I have discussed with the patient the echo findings. There is no evidence for cardiac cause of his syncope. I have discussed with him about the need to cut his alcohol intake. I will sign off on the case today. No further cardiac workup is necessary. The patient will follow up with his own author. Onel Garrett MD
--- NOTE | 2017-10-16 11:10 | PN ---
DATE: 10/16/2017 SUBJECTIVE: I saw Elkin this morning, he is very tired. I discussed this with nurse that he was up most of the night. He is on Ambien, Antivert, Coreg, Desyrel, Ecotrin, Flomax, Lanoxin, magnesium, Norvasc, oxycodone, Synthroid, Tylenol and Zofran. He was so tired, he did not have his oxycodone this morning. PHYSICAL EXAMINATION VITAL SIGNS: He has a 97.9 temp, 91 pulse, 136/75 blood pressure, 18 respiratory rate, 99% O2 sat on room air. HEENT: His head is atraumatic, normocephalic. HEART: Regular rate. LUNGS: Clear to auscultation. ABDOMEN: Morbidly obese. Nontender, soft. Positive bowel sounds. EXTREMITIES: No edema. ASSESSMENT AND PLAN: He is here to get physical therapy before he can go home, TCU. His last labs were from 10/14/2017 and he did well. He was seen by Dr. Onel Garrett, the orthotist or prosthetist. He had multiple syncopal episodes, he had alcoholic toxicity, opioid use, questionable cardiomyopathy, anemia and obesity. He is going to stop his drinking and adjusting medications depending on his blood pressure issues; right now, it is 136/75. We will continue with aggressive treatment and care, I am making sure he is doing his physical therapy. Zhen Mendoza DO MTDD
[2017-10-16] MEDS: Digoxin 250 mcg (0.25 mg) Tab PO SCH (13:55)
[2017-10-17] MEDS: Levothyroxine 100 MCG TAB PO SCH (05:11)
[2017-10-17] MEDS: oxyCODONE 20 mg ER Tab (oxyCONTIN) PO SCH ×3 (09:06→22:01)
[2017-10-17] MEDS: Magnesium Oxide 400 mg Tab UD PO SCH ×2 (09:08→17:12)
[2017-10-17] MEDS: EDARBI 80 MG PO SCH (09:08)
[2017-10-17] MEDS: CELEBREX 200 MG PO SCH (09:11)
--- NOTE | 2017-10-17 10:29 | PN ---
DATE: 10/17/2017 SUBJECTIVE: I saw Elkin resting comfortably in bed this morning. He is trying physical therapy, tells me he is improving. He is on Ambien, Antivert, Coreg, Desyrel, Ecotrin, Flomax, Lanoxin, magnesium, Norvasc, oxycodone, Synthroid, Tylenol and Zofran. He is also eating very well, they tell me. PHYSICAL EXAMINATION: VITAL SIGNS: He has a 98 temperature, 85 pulse, 122/70 blood pressure, 18 respiratory rate, 97% O2 sat on room air. HEENT: Head is atraumatic, normocephalic. HEART: Regular rate. LUNGS: Decreased breath sounds, but clear. ABDOMEN: Morbidly obese. Soft, nontender. Positive bowel sounds. EXTREMITIES: Trace edema if any. LABORATORY DATA: Last labs on the 10/14/2017, he did well. ASSESSMENT AND PLAN: He is being seen by Cardiology. There is no evidence of cardiac disease cause of syncope and it is felt to be alcohol and pain medication induced. He had syncope, high alcohol level. He is alcoholic. He has chronic pain. He is obese and has hypertension, hopefully not drinking over the past week and that will continue to help him. Continue aggressive treatment and care and physical therapy and I discussed getting off his pain medications. Zhen Mendoza DO [facility]
[2017-10-17] MEDS: Digoxin 250 mcg (0.25 mg) Tab PO SCH (13:32)
[2017-10-18] MEDS: Levothyroxine 100 MCG TAB PO SCH (06:41)
[2017-10-18] MEDS: CELEBREX 200 MG PO SCH (09:06)
[2017-10-18] MEDS: EDARBI 80 MG PO SCH (09:07)
[2017-10-18] MEDS: Magnesium Oxide 400 mg Tab UD PO SCH ×2 (09:08→17:52)
[2017-10-18] MEDS: oxyCODONE 20 mg ER Tab (oxyCONTIN) PO SCH ×2 (09:13→22:18)
--- NOTE | 2017-10-18 12:36 | PN ---
DATE: 10/18/2017 SUBJECTIVE: I saw Elkin in Physical Therapy doing an elliptical type machine. He is feeling well, slept well. a little bit lightheaded. He is on Ambien, Antivert, Coreg, Desyrel, Ecotrin, Flomax, Lanoxin, magnesium, Norvasc, oxycodone, Synthroid, Tylenol, and Zofran. PHYSICAL EXAMINATION: VITAL SIGNS: He has 97 temp, 66 pulse, blood pressure was high at 164/96, 18 respiratory rate. I might increase his medications for his blood pressure, mostly the Norvasc, I might increase to 10 mg. LABORATORY DATA: Last labs on 10/14/2017, I am going to repeat the labs for tomorrow. PLAN: I encouraged him to continue to eat and drink well. He is being seen by Cardiology. If the blood pressure is still high tomorrow, I will increase him to Norvasc 10, we will keep an eye on it, but we will check his labs tomorrow, and he is stating that plan is to go home on Thursday. He is here for syncopal, high alcohol level, alcoholic, chronic pain, hypertension, obesity, hypothyroid. Zhen Mendoza DO [facility]
[2017-10-18] MEDS: Digoxin 250 mcg (0.25 mg) Tab PO SCH (14:28)
[2017-10-19] MEDS: Levothyroxine 100 MCG TAB PO SCH (06:19)
[2017-10-19 07:25] LABS: ALB/GLOB RATIO 1.1 (1.1-1.8); ALBUMIN 3.4 g/dL (3.0-4.8); ALT/SGPT 37 U/L (7-56); AST/SGOT 27 U/L (17-59); BLOOD UREA NITROGEN 26 mg/dL (7-21); CALCIUM 8.9 mg/dL (8.4-10.5); GFR AFRICAN-AMERICAN > 60; GFR NON-AFRICAN AMERICAN > 60
[2017-10-19 07:30] LABS: HEMOGLOBIN 11.7 g/dL (14.0-18.0); MEAN CELL VOLUME 99.4 fl (80.0-105.0); MEAN CORPUSCULAR HEMOGLOBIN 32.4 pg (25.0-35.0); MEAN CORPUSCULAR HGB CONC 32.6 g/dl (31.0-37.0); MEAN PLATELET VOLUME 9.7 fl (7.0-11.0); RBC 3.61 10^6/uL (3.5-6.1); RED CELL DISTRIBUTION WIDTH 13.9 % (11.5-14.5); WHITE BLOOD COUNT 9.2 10^3/ul (4.5-11.0)
--- NOTE | 2017-10-19 08:53 | PN ---
DATE: 10/19/2017 SUBJECTIVE: I saw Elkin resting this morning in bed in the TCU. He tells me he is quite dizzy. He did have dizzy a few times on and off and another dizzy staying. I will call in Neurology and I will put him on meclizine. MEDICATIONS: He is also on Ambien; Antivert, which I just put him; Coreg; Desyrel; Ecotrin; Flomax; Lanoxin; magnesium oxide; Norvasc; OxyContin; Synthroid; Tylenol and Zofran. PHYSICAL EXAMINATION: VITAL SIGNS: 97.6 temp, 80 pulse, 95/54 blood pressure, 105/59 blood pressure. There are a little bit low, but then during the day they are 154/96, 18 respiratory. HEENT: His head is atraumatic, normocephalic. HEART: Regular rate. LUNGS: Decreased breath sounds, but clear. ABDOMEN: Soft, obese. EXTREMITIES: No edema. LABORATORY DATA: He has a 9.2 white count, 11.7 hemoglobin, 35.9 hematocrit with 339 platelets. 138 sodium, potassium 5, BUN 26, creatinine 1.1, GFR is greater than 60, sugar is 96, calcium is 8.9, total bili is 0.3, AST is 27, ALT is 37, alk phos 85, total protein 6.3. TSH is 2.1. His labs are good. ASSESSMENT AND PLAN: He was being seen by Dr. Garrett, the rib stiffener and heel dipper. I am going to call in Neurology and put him on Antivert for the dizzy. Hopefully, that will help him. So he has got recurrent syncope, alcohol binges history, obesity, hypertension, chronic pain. He has got to cut out alcohol and to see where this dizziness is from. We will see what Neurology has to say. Zhen Mendoza DO
[2017-10-19] MEDS: Magnesium Oxide 400 mg Tab UD PO SCH ×2 (10:21→17:46)
[2017-10-19] MEDS: EDARBI 80 MG PO SCH (10:21)
[2017-10-19] MEDS: CELEBREX 200 MG PO SCH (10:21)
[2017-10-19] MEDS: oxyCODONE 20 mg ER Tab (oxyCONTIN) PO SCH ×2 (10:25→21:34)
[2017-10-19] MEDS: Digoxin 250 mcg (0.25 mg) Tab PO SCH (13:36)
--- NOTE | 2017-10-19 14:22 | CON ---
DATE: 10/19/2017 NEUROLOGY CONSULT CHIEF COMPLAINT: Dizziness. HISTORY OF PRESENT ILLNESS: This is a 56-year-old -[place]iquais man with past medical history of traumatic brain injury, syncope, history of alcohol abuse, chronic lumbosacral pain, cardiomyopathy, history of gastric bypass, who came in with a syncopal episode. Found to have highly elevated alcohol level of 259. He was on chronic pain meds in terms of opiates, which kind of gave him the whole syncopal episode. His EEG was normal and showed no seizure-like activity. At this time, I was reconsulted at [facility] where he was getting rehabilitated for dizziness. He was found to have low systolic and diastolic blood pressures and he is on various blood pressure medications, which have been discontinued by the solar sales representative and assessor, which I agree with. Otherwise, he is moving all extremities, following all commands. PAST MEDICAL HISTORY: As above. SOCIAL HISTORY: Drinks daily. He is on a lot of narcotics, but nonsmoker. ALLERGIES: ALLERGIC TO KIWI, NUTS AND TANGERINES. MEDICATIONS: Reviewed by nurses' reconciliation sheet. FAMILY HISTORY: Hypertension in the family. REVIEW OF SYSTEMS: Fourteen-point review of systems is negative except as per the HPI. PHYSICAL EXAMINATION: VITAL SIGNS: Temperature afebrile, pulse rate of 80, blood pressure of /54, respiratory rate of 16, oxygen saturation 98% by room air. GENERAL: The patient is sitting up in bed, in no acute distress. HEENT: Atraumatic, normocephalic. PERRLA. Extraocular muscles intact. NECK: Supple. No JVD. No adenopathy noted. LUNGS: Clear to auscultation. No adventitious sounds. HEART: S1, S2. Normal rate and rhythm. No murmurs, rubs or gallops. ABDOMEN: Soft, nontender and nondistended. Bowel sounds are present. EXTREMITIES: No clubbing. No cyanosis. Peripheral pulses 2+ felt bilaterally. NEUROLOGIC: The patient is alert and oriented to person, place, month and year. Speech is fluent without any errors. Cranial nerves II through XII are intact. Motor exam: Moves all extremities equally. No pronator drift seen. Sensory exam: Light touch, pinprick, proprioception and vibration are intact. DTRs are 2+ throughout, 1 at both knees and ankles. Coordination: [id number] intact. No dysmetria noted. Gait is deferred for now. LABORATORY DATA: Sodium is 138, potassium of 5, chloride of 103, carbon dioxide of 26, BUN of 26, creatinine of 1.1, random glucose of 96. ASSESSMENT AND PLAN: This is a 56-year-old man with history of chronic alcohol abuse, history of cardiomyopathy, history of chronic back pain and history of gastric bypass, on chronic opiates. He is a chronic drinker. Came in initially to [facility] for syncopal event with elevated alcohol level of 259 as well as taking lots of opiates in conjunction and developed a syncopal event. In addition, his electroencephalogram was normal, but he is in Transitional Care Unit for rehabilitation and has been dizzy. Dizziness is likely secondary to transient cerebral hypoperfusion to the brain from low systolic and diastolic blood pressures, most likely secondary to blood pressure medications and opiates. At this time, I will recommend, 1. Reduction of opiate therapy as an outpatient with Dr. Giron. 2. The solar sales representative and assessor has recommended to stop certain blood pressure medications, which I agree with. 3. Adequate hydration throughout the day. 4. Meclizine 25 mg p.o. with acute onset of dizziness. 5. Counseled on alcohol cessations. He is clinically stable. Thank you for this consult. Jimy Craig MD cc: MD Phylicia (Delete if not dictated.)
[2017-10-19 17:36] VITALS: O2SAT 99
--- NOTE | 2017-10-19 18:21 | PN ---
DATE: 10/19/2017 CARDIOLOGY FOLLOWUP SUBJECTIVE: The patient still complains of intermittent dizziness. PHYSICAL EXAMINATION: VITAL SIGNS: Blood pressure varies from 95-107 systolic. NECK: Negative JVD. HEART: Reveals S2. EXTREMITIES: Without edema. LABORATORY DATA: Hemoglobin is 11.7. Chemistries, BUN and creatinine are unremarkable. IMPRESSION: 1. Recurrent dizziness. 2. Relative hypotension. 3. History of alcoholism. 4. Good left ventricular function on echocardiogram. PLAN: Given these findings, we will discontinue his Norvasc. In addition, we will hold off on his carvedilol for blood pressures. His hypertension is not an issue at this time. Onel Garrett MD
[2017-10-20] MEDS: Levothyroxine 100 MCG TAB PO SCH (05:12)
[2017-10-20] MEDS: CELEBREX 200 MG PO SCH (09:56)
[2017-10-20] MEDS: EDARBI 80 MG PO SCH (09:56)
[2017-10-20] MEDS: Magnesium Oxide 400 mg Tab UD PO SCH ×2 (09:57→17:13)
[2017-10-20] MEDS: oxyCODONE 20 mg ER Tab (oxyCONTIN) PO SCH (10:02)
[2017-10-20 10:09] VITALS: RESP 16; TEMP 98.6
[2017-10-20] MEDS: Digoxin 250 mcg (0.25 mg) Tab PO SCH (13:16)
[2017-10-20 13:19] VITALS: PULSE 90
--- NOTE | 2017-10-20 15:28 | PN ---
DATE: 10/20/2017 CARDIOLOGY FOLLOWUP PHYSICAL EXAMINATION: VITAL SIGNS: The patient's pressure varies from 101-137, heart rate is in the 90s. NECK: Negative JVD. LUNGS: Without rales. HEART: Reveals S1, S2. EXTREMITIES: Without edema. LABORATORY DATA: Hemoglobin is 11.7. Chemistries: BUN and creatinine are unremarkable. ASSESSMENT AND PLAN: Given these findings, we are slowly decreasing the patient's hypertensive medications. Much of HIS dizziness may be related to blood pressure and certainly his prostate medications may contribute. We continued to discontinue his Norvasc at this time. I have discussed with the patient, he is being discharged today. 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 Onel Garrett MD
[2017-10-20 17:16] VITALS: BP 122/72; PULSE 96
--- NOTE | 2017-10-21 04:24 | DS ---
HISTORY OF PRESENT ILLNESS: I am seeing Elkin in the TCU. He is doing well with physical therapy. He came into the hospital with alcohol abuse, elevated alcohol level of greater than 250, also some dizziness, also taking lots of pain medications, and now he is in the TCU to help him get physically better walking. He still says he is a little bit dizzy. He is on Antivert and he has been seen by the neurologist and the motorboat mechanic helper. He is on Ambien, Antivert, Coreg, Desyrel, Ecotrin, Flonase, Lanoxin, magnesium, oxycodone at very high dose 40 x2, Synthroid, Tylenol, and Zofran. I have asked to decrease the pain meds, but Dr. Giron put him on a higher dose. PHYSICAL EXAMINATION: VITAL SIGNS: He has a 97.9 temperature, 95 pulse, 137/90 blood pressure, 99% O2 sat on room air. HEENT: Head is atraumatic, normocephalic. HEART: Regular rate. LUNGS: Decreased breath sounds, but clear. ABDOMEN: Soft, morbidly obese, nontender. EXTREMITIES: No edema. NEUROLOGIC: A little bit dizzy; he will be on the meclizine. LABORATORY DATA: Labs on 10/19/2017 look good. ASSESSMENT AND PLAN: Seen by Neurology, Pulmonology, and hopefully he will continue to do well. I would like to see him in the office next week. Continue with the same medications as now. Zhen Mendoza DO
== END 2017-10-20 20:00 | disposition home or self-care (01) | DRG 92 ==
LOC: TRCU 14:19
PROVIDERS: ADMIT Family Medicine; ATTEND Family Medicine
PROC: F07Z9ZZ Gait Training/Functional Ambulation Treatment (ICD-10-PCS; principal; 2017-10-13)
PROC: F08Z4ZZ Home Management Treatment (ICD-10-PCS; 2017-10-13)
DX: G89.4 Chronic pain syndrome (principal); M47.816 Spondylosis without myelopathy or radiculopathy, lumbar region; F10.20 Alcohol dependence, uncomplicated; R42 Dizziness and giddiness; Z68.41 Body mass index [BMI] 40.0-44.9, adult; I42.9 Cardiomyopathy, unspecified; D64.9 Anemia, unspecified; I10 Essential (primary) hypertension; F41.9 Anxiety disorder, unspecified; E66.9 Obesity, unspecified; Z87.820 Personal history of traumatic brain injury; Z98.84 Bariatric surgery status